=== PATIENT | female | born 1950 | race Caucasian/White ===

== ENCOUNTER 2021-12-30 10:55 | Emergency (ER) | payer MEDICARE, BC ==
[2021-12-30] MEDS: Aspirin 81 MG Tab.Chew PO ONE (11:34)
[2021-12-30] MEDS: Nitroglycerin 0.4 MG Tab.SL SL ONE (11:37)
[2021-12-30 12:05] LABS: ANION GAP 13.9 mmol/L (5-15)
[2021-12-30] MEDS: Ondansetron 4 MG/2 ML SDV IVPUSH ONE (12:22)
[2021-12-30] MEDS: Morphine 2 MG/ML SYRINGE IVPUSH ONE (12:26)
[2021-12-30] MEDS: Sodium Chloride 0.9% 10 ML Syringe FLUSH PRN (12:31)
[2021-12-30] MEDS: Iopamidol 755 Mg/ML 100 ML Bottle IVPUSH ONE (13:10)
[2021-12-30 13:37] VITALS: BP 113/51; PULSE 66
== END 2021-12-30 14:07 | disposition home or self-care (01) ==
LOC: VM.ED 10:55
DX: R07.9 Chest pain, unspecified (principal); K76.0 Fatty (change of) liver, not elsewhere classified; R74.01 Elevation of levels of liver transaminase levels; M54.6 Pain in thoracic spine; E78.00 Pure hypercholesterolemia, unspecified; J44.9 Chronic obstructive pulmonary disease, unspecified; I10 Essential (primary) hypertension; Z88.8 Allergy status to other drugs, medicaments and biological substances; Z79.899 Other long term (current) drug therapy
CPT/HCPCS: 36415; 71046; 71275; 80053; 83690; 83735; 83880; 84484; 85025; 85379; 85610; 93005; 96374; 96375; 99285-25; A9270-GY; J2270; J2405; J3490; Q9967